=== PATIENT | male | born 1985 | race Hispanic/Latino ===

== ENCOUNTER → 2020-05-25 | Outpatient (CLI) | payer OTHER | LOC: RAD 09:52 | PROVIDERS: ATTEND Family Medicine | DX: M25.561 Pain in right knee (principal); M25.562 Pain in left knee; R26.9 Unspecified abnormalities of gait and mobility; E66.01 Morbid (severe) obesity due to excess calories ==

== ENCOUNTER → 2022-11-04 | Day surgery (SDC) | payer BC, OTHER ==
[~2022-11-04] MED LIST: BUPROPION HCL150 M2 PO; CALCIUM; CIALIS5 MG; FENTANYL CITRATE/PF 100MCG/2 ML INJ ONE; IRON; LACTATED RINGER'S 1,000 ML ONE; LIDOCAINE HCL 2% LOCAL INJ 5 ML SDV VIAL INJ ONE; LISINOPRIL10 MG PO; METOCLOPRAMIDE HCL 10 MG/2ML VIAL ONE; MIDAZOLAM HCL 2 MG/2 ML VIAL ONE; MULTI-VITAMIN1 EACH PO; OMEPRAZOLE40 MG PO; POVIDONE IODINE 0.05% 0.05 % ML PO ONE; PROPOFOL IV EMULSION 10 MG/ML 20 ML VIAL ONE; SUCRALFATE1 GM PO; TADALAFIL20 M1; TESTOSTERO200 MG/1 M
[2022-11-04 16:38] VITALS: BP 125/84
[2022-11-07 08:16] LABS: ENDOMYSIAL ANTIBODIES, IGA Negative (Negative)
== END | disposition home or self-care (01) ==
LOC: OR 13:11
PROVIDERS: ATTEND Internal Medicine Gastroenterology
DX: K29.70 Gastritis, unspecified, without bleeding (principal); Z98.84 Bariatric surgery status; K57.30 Diverticulosis of large intestine without perforation or abscess without bleeding; K64.8 Other hemorrhoids; Z71.3 Dietary counseling and surveillance; D64.89 Other specified anemias; T39.395A Adverse effect of other nonsteroidal anti-inflammatory drugs [NSAID], initial encounter; E66.01 Morbid (severe) obesity due to excess calories; I10 Essential (primary) hypertension; Z71.89 Other specified counseling; N52.9 Male erectile dysfunction, unspecified; Z01.810 Encounter for preprocedural cardiovascular examination; Z79.899 Other long term (current) drug therapy; Z68.44 Body mass index [BMI] 60.0-69.9, adult; Z86.16 Personal history of COVID-19
CPT/HCPCS: 43239; 45378; 82784; 83516; 86256; 93005; J2001; J2250; J2704; J2765; J3010; J7121